=== PATIENT | male | born 1965 | race Two or more races ===

== ENCOUNTER → 2024-07-07 | Outpatient (CLI) | payer BC ==
[2024-07-07 13:05] LABS: Urine Bacteria None Seen /hpf (None Seen)
[2024-07-07 13:13] LABS: Urine Blood Negative /uL (Negative); Urine Clarity Clear (Clear); Urine Color Yellow (Yellow); Urine Mucus FEW (None Seen); Urine Protein, UAD Negative (Negative); Urine Specific Gravity 1.028 (1.001-1.035); Urine Urobilinogen Normal (Negative); Urine WBC 2 /hpf (0 - 3)
[2024-07-07 13:14] LABS: Basophils # (auto) 0 10 ^3/uL (0-0.2); Basophils % (auto) 0.7 % (0.0-2.0); Eosinophils # (auto) 0.3 10 ^3/uL (0-0.8); Eosinophils % (auto) 4.8 % (0.0-7.0); Hematocrit 45.7 % (41.0-53.0); Hemoglobin 15.8 g/dL (13.5-17.5); Lymphocytes % (auto) 29.7 % (10.0-50.0); Mean Corpuscular Hemoglobin 31.5 pg (28.0-32.0); Mean Corpuscular Hgb Conc. 34.5 g/dL (32.0-36.0); Mean Corpuscular Volume 91.1 fL (80.0-100.0); Monocytes # (auto) 0.6 10 ^3/uL (0-1.3); Monocytes % (auto) 9.2 % (0.0-12.0); Neutrophils # (auto) 3.8 10 ^3/uL (1.6-8.6); Neutrophils % (auto) 55.6 % (37.0-80.0); Nucleated Red Blood Cells % 0.2 %; Platelet Count (auto) 215 10^3/uL (140-450); Red Blood Cells 5.01 10^6/uL (4.5-5.90); Red Cell Distribution Width 12.8 % (11.8-14.3); White Blood Cell 6.8 10^3/uL (4.4-10.8)
[2024-07-07 13:26] LABS: INR 1.03 (0.9-1.15); Prothrombin Time 10.9 sec (9.3-11.8)
[2024-07-07 13:32] LABS: Albumin 4.7 g/dL (3.2-4.8); Alkaline Phosphatase 66 U/L (46-116); Anion Gap 7 (5-15); Aspartate Aminotransferase 20 U/L (13-40); BUN/Creatinine Ratio 11.8 (10.0-20.0); Bilirubin, Total 0.8 mg/dL (0.2-1.0); Blood Urea Nitrogen 14 mg/dL (9-23); Calcium 10.3 mg/dL (8.7-10.4); Carbon Dioxide 29 mmol/L (20-31); Chloride 104 mmol/L (98-107); Cholesterol 183 mg/dL (< 200); Glucose 90 mg/dL (74-106); HDL Cholesterol 42 mg/dL (40-59); Potassium 4.4 mmol/L (3.5-5.1); Sodium 140 mmol/L (136-145); Total Protein 7.4 g/dL (5.7-8.2)
[2024-07-07 13:33] LABS: Alanine Aminotransferase 47 U/L (7-40); LDL Cholesterol 115 mg/dL (< 100); Triglycerides 183 mg/dL (< 150)
[2024-07-07 13:54] LABS: Folate (Folic Acid) 39.64 ng/mL (>5.38)
== END | disposition home or self-care (01) ==
LOC: LAB 12:46
PROVIDERS: ATTEND Internal Medicine
DX: E78.9 Disorder of lipoprotein metabolism, unspecified (principal); R68.89 Other general symptoms and signs; R73.09 Other abnormal glucose; E61.2 Magnesium deficiency; R94.6 Abnormal results of thyroid function studies; E79.0 Hyperuricemia without signs of inflammatory arthritis and tophaceous disease; E55.9 Vitamin D deficiency, unspecified; R82.90 Unspecified abnormal findings in urine; R82.79 Other abnormal findings on microbiological examination of urine; D51.9 Vitamin B12 deficiency anemia, unspecified
CPT/HCPCS: 36415; 80053; 80061; 81001; 82306; 82607; 82746; 83036; 84443; 84484; 85025; 85610; 85730; 87086

== ENCOUNTER 2024-10-03 07:18 | Inpatient (IN) | payer BC ==
[2024-09-30 12:04] LABS: Basophils # (auto) 0 10 ^3/uL (0-0.2); Basophils % (auto) 0.6 % (0.0-2.0); Eosinophils # (auto) 0.3 10 ^3/uL (0-0.8); Eosinophils % (auto) 5.3 % (0.0-7.0); Hematocrit 46.7 % (41.0-53.0); Hemoglobin 15.9 g/dL (13.5-17.5); Lymphocytes # (auto) 1.8 10 ^3/uL (0.4-5.4); Mean Corpuscular Hemoglobin 30.7 pg (28.0-32.0); Mean Corpuscular Volume 90.3 fL (80.0-100.0); Monocytes # (auto) 0.5 10 ^3/uL (0-1.3); Monocytes % (auto) 9.4 % (0.0-12.0); Neutrophils # (auto) 2.9 10 ^3/uL (1.6-8.6); Neutrophils % (auto) 51.7 % (37.0-80.0); Nucleated Red Blood Cells % 0.2 %; Platelet Count (auto) 213 10^3/uL (140-450); Red Blood Cells 5.17 10^6/uL (4.5-5.90); Red Cell Distribution Width 12.9 % (11.8-14.3); White Blood Cell 5.5 10^3/uL (4.4-10.8)
[2024-09-30 12:07] LABS: Urine Bacteria FEW /hpf (None Seen); Urine Blood Negative /uL (Negative); Urine Clarity Clear (Clear); Urine Color Yellow (Yellow); Urine Mucus FEW (None Seen); Urine Protein, UAD Negative (Negative); Urine Specific Gravity 1.013 (1.001-1.035); Urine Sperm PRESENT /hpf (None Seen); Urine Squamous Epithelial Cell None Seen /hpf (<5); Urine Urobilinogen Normal (Negative); Urine WBC 2 /HPF (0-3); Urine pH 5.5 (5.0-9.0)
[2024-09-30 12:17] LABS: INR 1.01 (0.9-1.15); Partial Thromboplastin Time 28.6 SEC (24.5-34.5); Prothrombin Time 10.7 sec (9.3-11.8)
[2024-09-30 13:15] LABS: Alkaline Phosphatase 66 U/L (46-116); Anion Gap 7 (5-15); Aspartate Aminotransferase 27 U/L (13-40); BUN/Creatinine Ratio 11.7 (10.0-20.0); Blood Urea Nitrogen 15 mg/dL (9-23); Calcium 10.3 mg/dL (8.7-10.4); Carbon Dioxide 28 mmol/L (20-31); Chloride 104 mmol/L (98-107); Glucose 86 mg/dL (74-106); Sodium 139 mmol/L (136-145); Total Protein 7.6 g/dL (5.7-8.2)
[2024-09-30 13:16] LABS: Bilirubin, Total 0.9 mg/dL (0.2-1.0)
[2024-09-30 13:17] LABS: Alanine Aminotransferase 42 U/L (7-40); Albumin 4.9 g/dL (3.2-4.8)
[~2024-10-03] VITALS: Ht 182.9 cm; Wt 105.4 kg
[2024-10-03] VITALS (14 sets, daily range): BP systolic 100–122; BP diastolic 59–76; PULSE 73–102; RESP 11–18; TEMP 97.2–98.2; O2SAT 91–100
[~2024-10-03 07:18] MED LIST: DICL75TA3 PO; FAMO-12 PO; LISI10TA34 PO; SIMV20TA20 PO; TADA5TAB11 PO
[2024-10-03] MEDS: ACETAMINOPHEN IV 100 ML IV ONE (08:21)
[2024-10-03] MEDS ORDERED: fentaNYL CITRATE 100 MCG/2 ML VL ONE (08:23)
[2024-10-03] MEDS ORDERED: SODIUM CHLORIDE LOCK 10 ML ONE (08:24)
[2024-10-03] MEDS ORDERED: LIDOCAINE 1% INJ PF 5ML AMP ONE (08:24)
[2024-10-03] MEDS ORDERED: BUPIVACAINE/DEXTROSE MPF 0.75% 2 ML AMP IT ONE (08:24)
[2024-10-03] MEDS ORDERED: KETAMINE 50mg/ML 10ml Vial 10 ML ONE (08:24)
[2024-10-03] MEDS ORDERED: MIDAZOLAM HCL 2MG/2ML 2ml VIAL (1mg/ml) ONE ×2 (08:24→08:28)
[2024-10-03] MEDS ORDERED: PROPOFOL 10 MG/ML 20 ML IV ONE (08:24)
[2024-10-03] MEDS ORDERED: EPINEPHrine HCL 1 MG/1 ML AMP ONE (08:24)
[2024-10-03] MEDS ORDERED: ONDANSETRON HCL 4 MG/2 ML VIAL ONE (08:24)
[2024-10-03] MEDS: CELECOXIB 100 MG CAP ONE (08:45)
[2024-10-03] MEDS: PREGABALIN CAPSULE 75 MG CAP ONE (08:46)
[2024-10-03] MEDS: ACETAMINOPHEN IV 1000 MG/100ML (10MG/ML) IV ONE (09:30)
[2024-10-03] MEDS: PREGABALIN CAPSULE 75 MG CAP PO ONE (09:30)
[2024-10-03] MEDS: CELECOXIB 100 MG CAP PO ONE (09:30)
[2024-10-03] MEDS: KETOROLAC TROMETH 30 MG/ML 1ML VIAL ONE (09:57)
[2024-10-03] MEDS: TETRACAINE 1% INJ 2 ML VIAL IJ ONE (09:58)
[2024-10-03] MEDS: ceFAZolin 2 GM/D5W100ml 100 ML IV ONE (10:24)
[2024-10-03] MEDS: CEFEPIME 1GM/ 50ML 50 ML IV ONE (10:43)
[2024-10-03] MEDS: LACTATED RINGER'S 1,000 ML IV SCH (10:45)
[2024-10-03] MEDS ORDERED: MORPHINE SULFATE INJ 2 MG/ml SYRG IV PRN ×2 (10:45→12:15)
[2024-10-03] MEDS ORDERED: NITROGLYCERIN 0.4 MG SL TAB SL PRN (10:45)
[2024-10-03] MEDS ORDERED: HYDROmorphone HCL 2 MG/ML VL/or syr IV PRN ×6 (10:45→14:30)
[2024-10-03] MEDS: TRANEXAMIC ACID 20 ML ONE (10:50)
[2024-10-03] MEDS: BUPIVACAINE HCL 0.25% P/F 10 ML VIAL ONE (10:52)
[2024-10-03] MEDS: MORPHINE SULF PF 5 MG/10 ML VIAL ONE (10:52)
[2024-10-03] MEDS: KETOROLAC TROMETH 30 MG/ML 1ML VIAL IV ONE (10:52)
[2024-10-03] MEDS: VANCOMYCIN HCL 1000 MG VL ONE ×2 (10:52)
[2024-10-03] MEDS: ONDANSETRON HCL 4 MG/2 ML VIAL IV PRN (12:15)
[2024-10-03] MEDS ORDERED: MORPHINE SULFATE 4 MG/ML SYR/VIAL IV PRN (12:15)
[2024-10-03] MEDS ORDERED: NALOXONE HCL 0.4 MG/ML VIAL IV PRN (12:15)
[2024-10-03] MEDS ORDERED: diphenhdrAMINE HCL 50 MG/1 ML VL IV PRN (12:15)
[2024-10-03] MEDS: METOCLOPRAMIDE HCL 5MG/ml INJ 2ml VIAL IV ONE (12:15)
--- NOTE | 2024-10-03 12:21 | DVH ---
CLINICAL INDICATION: sp Right DAVID TECHNIQUE: 1 radiographic views of the pelvis were obtained. Comparison: None FINDINGS/IMPRESSION: Status post left hip arthroplasty.
[2024-10-03] MEDS: FAMOTIDINE (10MG/ML) 2ML VL IV ONE ×2 (12:24→12:30)
[2024-10-03] MEDS: METOCLOPRAMIDE HCL 5MG/ml INJ 2ml VIAL ONE (13:40)
--- NOTE | 2024-10-03 14:23 | DVHHP2 ---
Review of Systems Allergies: Coded Allergies: NO KNOWN ALLERGIES (Unverified , 09/30/24) Medications Current Medications Medications Dose Ordered Sig/Danial Route Start Time Stop Time Status Last Admin Dose Admin Famotidine 20 mg DAILY PO 10/04/24 10:00 Lisinopril 10 mg DAILY PO 10/04/24 10:00 Atorvastatin Calcium 10 mg HS PO 10/03/24 22:00 Lactated Ringer's 1,000 ml @ 100 mls/hr Q10H IV 10/03/24 10:45 Cefazolin Sodium 50 ml @ 50 mls/hr Q6H IV 10/03/24 10:45 10/03/24 23:44 Oxycodone/ Acetaminophen 1 tab Q4HP PRN PO 10/03/24 10:45 Oxycodone HCl 10 mg Q12HR PO 10/03/24 22:00 Ondansetron HCl 4 mg Q6HP PRN IV 10/03/24 10:45 10/03/24 12:15 4 MG Docusate Sodium 100 mg Q12HR PO 10/03/24 22:00 Enoxaparin Sodium 40 mg DAILY SC 10/04/24 10:00 Nitroglycerin 0.4 mg Q5MINP PRN SL 10/03/24 10:45 Morphine Sulfate 2 mg Q30M PRN IV 10/03/24 10:45 Cefepime HCl 50 ml @ 12.5 mls/hr DAILY IV 10/04/24 10:00 Morphine Sulfate 2 mg Q4H PRN IV 10/03/24 12:15 10/03/24 16:16 Diphenhydramine HCl 25 mg Q4HP PRN IV 10/03/24 12:15 Hydromorphone HCl 1 mg Q2HP PRN IV 10/03/24 13:00 Exam Vital Signs Vital Signs Date Time Temp Pulse Resp B/P (MAP) Pulse Ox O2 Delivery O2 Flow Rate FiO2 10/03/24 08:20 97.8 97 20 127/82 (97) 97 97.8 Labs/Xrays Labs Test 09/30/24 10:45 Range/Units White Blood Count 5.5 4.4-10.8 10^3/uL Red Blood Count 5.17 4.5-5.90 10^6/uL Hemoglobin 15.9 13.5-17.5 g/dL Hematocrit 46.7 41.0-53.0 % Mean Corpuscular Volume 90.3 80.0-100.0 fL Mean Corpuscular Hemoglobin 30.7 28.0-32.0 pg Mean Corpuscular Hemoglobin Concent 34.0 32.0-36.0 g/dL Red Cell Distribution Width 12.9 11.8-14.3 % Platelet Count 213 140-450 10^3/uL Mean Platelet Volume 8.3 6.9-10.8 fL Neutrophils (%) (Auto) 51.7 37.0-80.0 % Lymphocytes (%) (Auto) 33.0 10.0-50.0 % Monocytes (%) (Auto) 9.4 0.0-12.0 % Eosinophils (%) (Auto) 5.3 0.0-7.0 % Basophils (%) (Auto) 0.6 0.0-2.0 % Neutrophils # (Auto) 2.9 1.6-8.6 10 ^3/uL Lymphocytes # (Auto) 1.8 0.4-5.4 10 ^3/uL Monocytes # (Auto) 0.5 0-1.3 10 ^3/uL Eosinophils # (Auto) 0.3 0-0.8 10 ^3/uL Basophils # (Auto) 0 0-0.2 10 ^3/uL Nucleated Red Blood Cells 0.2 % Prothrombin Time 10.7 9.3-11.8 sec Prothrombin Time INR 1.01 0.9-1.15 Activated Partial Thromboplast Time 28.6 24.5-34.5 SEC Urine Color Yellow Yellow Urine Clarity Clear Clear Urine pH 5.5 5.0-9.0 Urine Specific [place] 1.013 1.001-1.035 Urine Protein Negative Negative Urine Ketones Negative Negative Urine Blood Negative Negative /uL Urine Nitrite Negative Negative Urine Bilirubin Negative Negative Urine Urobilinogen Normal Negative mg/dL Urine Leukocyte Esterase Negative Negative /uL Urine RBC 1 0 - 3 /hpf Urine Microscopic WBC 2 0-3 /HPF Urine Squamous Epithelial Cells None seen <5 /hpf Urine Bacteria Few H None Seen /hpf Urine Mucus Few None Seen Urine Sperm Present None Seen /hpf Urine Glucose Normal Normal mg/dL Sodium Level 139 136-145 mmol/L Potassium Level 5.0 3.5-5.1 mmol/L Chloride Level 104 98-107 mmol/L Carbon Dioxide Level 28 20-31 mmol/L Anion Gap 7 5-15 Blood Urea Nitrogen 15 9-23 mg/dL Creatinine 1.28 0.700-1.30 mg/dL Glomerular Filtration Rate Calc 64 >90 mL/min BUN/Creatinine Ratio 11.7 10.0-20.0 Serum Glucose 86 74-106 mg/dL Calcium Level 10.3 8.7-10.4 mg/dL Total Bilirubin 0.9 0.2-1.0 mg/dL Aspartate Amino Transferase (AST) 27 13-40 U/L Alanine Aminotransferase (ALT) 42 H 7-40 U/L Alkaline Phosphatase 66 46-116 U/L Total Protein 7.6 5.7-8.2 g/dL Albumin 4.9 H 3.2-4.8 g/dL Assessment/Plan Assessment/Plan see dictated note Plan discussed with: Patient My Orders Orders - NOAH SANCHEZ MD Procedure Category Date Status Time Admit ADMIT 10/03/24 Transmitted 13:23 Date of Service: Oct 03, 2024 Billing Provider: NOAH SANCHEZ MD Common Visit Codes: [id number] INP/OBS CARE (HIGH) NOAH SANCHEZ MD Oct 03, 2024 14:23
--- NOTE | 2024-10-03 14:40 | DVHHP ---
ADMIT DATE: 10/03/2024 HISTORY OF PRESENT ILLNESS: The patient is a 58-year-old gentleman who was admitted after he underwent surgery on the right hip for DJD of the hip. The patient at this time denies any significant pain. No chest pain or shortness of breath. The patient is having some nausea and vomiting. No history of fever. REVIEW OF SYSTEMS: Review of rest of systems are otherwise currently negative. PAST MEDICAL HISTORY: Significant for hypertension, hyperlipidemia, and BPH. MEDICATIONS: He takes lisinopril, simvastatin, and tadalafil. ALLERGIES: No known drug allergies. SOCIAL HISTORY: Denies smoking or alcohol. Lives at home with his . FAMILY HISTORY: Negative. PHYSICAL EXAMINATION: GENERAL: The patient is awake and alert. VITAL SIGNS: Temperature of 97.8, pulse 97 per minute, blood pressure 127/82. SHEENT: Unremarkable. There is no JVD. No pedal edema. LUNGS: Equal bilaterally. No added sounds. CARDIOVASCULAR: S1, S2 is regular. No murmurs. ABDOMEN: Soft. There is no organomegaly. NEUROLOGIC: Nonfocal. MUSCULOSKELETAL: There is a dressing at the site of right hip surgery. ASSESSMENT AND PLAN: * Benign prostatic hypertrophy for which the patient will continue on tadalafil. * Hypertension for which his blood pressure will be monitored. * Hyperlipidemia. * Obesity. * Status post right hip surgery for degenerative joint disease of the hip. The patient will be placed on pain medication and receive physical therapy. MD JIN Smith/CHAVA TID: [id number] RECEIPT: [id number]
--- NOTE | 2024-10-03 15:24 | DVH ---
CLINICAL INDICATION: SURGERY TECHNIQUE: 1 radiographic views of the pelvis were obtained. Comparison: XY PELVIS AP on DOS: 10/03/24 FINDINGS/IMPRESSION: There is no evidence of acute fracture or dislocation. Bipolar right hip prosthesis. The visualized joint space is well maintained. The alignment is anatomical. There is no radiopaque foreign body.
[2024-10-03] MEDS: ceFAZolin 1GM/50ML 50 ML IV SCH (16:45)
[2024-10-03] MEDS: DOCUSATE SOD 100 MG CAP PO SCH (21:40)
[2024-10-03] MEDS: oxyCODONE ER 10 MG TAB PO SCH (21:41)
[2024-10-03] MEDS: ATORVASTATIN 20 MG TAB PO SCH (21:41)
[2024-10-04] VITALS (13 sets, daily range): BP systolic 101–126; BP diastolic 62–72; PULSE 93–107; RESP 16–18; TEMP 98.2–100.3; O2SAT 96–100
[2024-10-04 05:44] LABS: Basophils # (auto) 0 10 ^3/uL (0-0.2); Basophils % (auto) 0.2 % (0.0-2.0); Eosinophils # (auto) 0.1 10 ^3/uL (0-0.8); Eosinophils % (auto) 0.8 % (0.0-7.0); Hematocrit 38.9 % (41.0-53.0); Hemoglobin 13.1 g/dL (13.5-17.5); Lymphocytes # (auto) 1.7 10 ^3/uL (0.4-5.4); Lymphocytes % (auto) 20.4 % (10.0-50.0); Mean Corpuscular Hemoglobin 30.5 pg (28.0-32.0); Mean Corpuscular Hgb Conc. 33.7 g/dL (32.0-36.0); Mean Corpuscular Volume 90.6 fL (80.0-100.0); Monocytes # (auto) 1.1 10 ^3/uL (0-1.3); Monocytes % (auto) 13.5 % (0.0-12.0); Neutrophils # (auto) 5.4 10 ^3/uL (1.6-8.6); Neutrophils % (auto) 65.1 % (37.0-80.0); Platelet Count (auto) 180 10^3/uL (140-450); Red Cell Distribution Width 12.7 % (11.8-14.3); White Blood Cell 8.2 10^3/uL (4.4-10.8)
[2024-10-04 06:08] LABS: Alanine Aminotransferase 35 U/L (7-40); Anion Gap 9 (5-15); BUN/Creatinine Ratio 14.7 (10.0-20.0); Blood Urea Nitrogen 16 mg/dL (9-23); Carbon Dioxide 27 mmol/L (20-31); Chloride 101 mmol/L (98-107); Potassium 4.1 mmol/L (3.5-5.1); Sodium 137 mmol/L (136-145); Total Protein 6.1 g/dL (5.7-8.2)
[2024-10-04 06:09] LABS: Aspartate Aminotransferase 29 U/L (13-40); Bilirubin, Total 0.8 mg/dL (0.2-1.0)
[2024-10-04 06:39] LABS: Alkaline Phosphatase 42 U/L (46-116); Glucose 112 mg/dL (74-106)
--- NOTE | 2024-10-04 08:01 | DVHPN2 ---
Progress Note Date Seen: Oct 04, 2024 Medical Necessity Reason Pt with a Central, PICC or Fol: No Subjective Patient reports: No new complaints Objective vital signs Vital Sign Date Time Temp Pulse Resp B/P (MAP) Pulse Ox O2 Delivery O2 Flow Rate FiO2 10/04/24 05:00 98.2 97 18 105/70 (82) 97 98.2 10/03/24 20:00 Nasal Cannula* 2 28 Total Intake and Output 10/03/24 10/03/24 10/04/24 15:00 23:00 07:00 Intake Total 270 ml 50 ml 2000 ml Balance 270 ml 50 ml 2000 ml medications Current Medications Medications Dose Ordered Sig/Danial Route Start Time Stop Time Status Last Admin Dose Admin Atorvastatin Calcium 10 mg HS PO 10/03/24 22:00 10/03/24 21:41 10 MG Lactated Ringer's 1,000 ml @ 100 mls/hr Q10H IV 10/03/24 10:45 10/03/24 21:43 100 MLS/HR Oxycodone/ Acetaminophen 1 tab Q4HP PRN PO 10/03/24 10:45 Oxycodone HCl 10 mg Q12HR PO 10/03/24 22:00 Ondansetron HCl 4 mg Q6HP PRN IV 10/03/24 10:45 10/03/24 12:15 4 MG Docusate Sodium 100 mg Q12HR PO 10/03/24 22:00 10/03/24 21:40 100 MG Enoxaparin Sodium 40 mg DAILY SC 10/04/24 10:00 Nitroglycerin 0.4 mg Q5MINP PRN SL 10/03/24 10:45 Morphine Sulfate 2 mg Q30M PRN IV 10/03/24 10:45 Cefepime HCl 50 ml @ 12.5 mls/hr DAILY IV 10/04/24 10:00 Diphenhydramine HCl 25 mg Q4HP PRN IV 10/03/24 12:15 Patient Own Medication 5 mg DAILY PO 10/04/24 10:00 Hydromorphone HCl 1 mg Q3HP PRN IV 10/03/24 14:30 Famotidine 20 mg DAILY IV 10/04/24 10:00 Examination: GENERAL:Normal, MSK:Abnormal (aquacel inact with no new drainage) laboratory and microbiology Laboratory Tests 10/04/24 05:02 Test 10/04/24 05:02 Range/Units Serum Glucose 112 H 74-106 mg/dL Problem List/Assessment/Plan Problem List/Assessment/Plan 58 year old male who is s/p Right DAVID POD 1 1. Pain control 2. WBAT with assistive devices as needed with posterior hip precautions 3. Physical therapy 4. prescriptions for tramadol and aspirin for DVT ppx sent to [facility] on [place] [address] 5. Follow up at [facility] ortho clinic in 2 weeks 6. clear for discharge home today from orthopedic standpoint with the following discharge recommendations: POSTOPERATIVE Posterior Total Hip INSTRUCTIONS Activity: 1. You can bear as much weight as you tolerate on your hip unless specifically instructed otherwise. You may use the walking aid which you were discharged with and switch to a cane whenever you feel comfortable doing so. You should use an assistive device until you can walk comfortably without it. Keep in mind that every patient moves at their own speed of recovery so take your time. 2. A physical therapist will visit you at home. 3. Although guarantees against a dislocation do not exist, the hip was noted to be sufficiently stable in surgery. Below are motions that you should dischargenot do for 4-6 weeks, depending on the surgical approach used. If there are questions, please call the office. a. Bend forward past 90 degrees b. Sit on a regular low chair, couch, car seat etc... c. Cross your legs d. Use a regular low toilet seat. e. Sleep on your stomach or on either side. 3. High impact activity such as jumping, aerobics, tennis, and skiing are not permitted during the first 3 months after surgery. These activities can contribute to accelerated wear and should be done with caution after this time. Discuss this with your surgeon if you have questions. 4. Although a bath or whirlpool is NOT permitted during the first 2-3 weeks, you may shower as soon as you get home from the hospital provided you are able to keep your bandage clean and dry and there is no wound drainage. If you are unable to place a secured covering over your bandage bed bath/sponge bath may likely be the more appropriate option. 5. Swimming is not permitted until the wound is healed, which typically occurs approximately 3-4 weeks after surgery. Wound Management: If the wound is draining please change the gauze pad on the wound until it stops. If drainage persists past 10 days please notify our office. If there is a sticky gel dressing over your wound, you may leave this in place for as long as it is clean and dry. If it becomes loose or causes skin irritation, it is OK to remove it and place clean gauze over your wound. 1. You might notice some bruising around the surgical site, this is normal. 2. Check your temperature on a daily basis. Please note that a low-grade temp below 101 is not uncommon after surgery especially during the first 3 days. Notify the office if your temperature spikes above 101.5 after the 3rd post- operative date. 3. Many patients experience significant swelling in the thigh, this may extend below the knee and sometimes to the ankle. Swelling increases during the first week and subsides during the following week. 4. Provided you have been on a blood thinner since surgery and have been up and about at least three times per day, the risk of a blood clot is low and this swelling is an expected part of recovery. It will largely or completely resolve by your first post-operative visit. 5. [place], if present, will be removed at 2 weeks during initial post-op visit. Medications: 1. You will be discharged with pain medication, Aspirin as a blood thinner and sometimes an anti-inflammatory medication such as Celebrex or Mobic might be prescribed. Please follow the instructions regarding these medicines as provided by your nurse at the hospital. 2. Narcotic pain medication has side effects, including constipation. Please ensure you continue to take stool softeners (Colace, Senna) while taking your pain medication to help protect against constipation. Getting up and moving around at least a few times per day helps with this also. 3. Lovenox 40 Sq x 12 days followed by one regular strength 325 mg coated aspirin daily for 4 weeks after surgery. Then, take one baby aspirin, 81 mg daily for 6 weeks more. A major, yet preventable, complication of Orthopaedic Surgery is a blood clot (DVT). It is important not to miss any doses of this important medication. 4. You should restart all of your prescription medications once discharged unless specifically instructed otherwise. 5. Herbal supplements may be restarted 2 weeks after surgery. Miscellaneous issues: 1. Driving is not permitted within the first 2 weeks. 2. Your first postoperative visit will take place 2weeks after discharge. Please call the office to arrange this appointment. 3. Antibiotic preventative treatment is required before dental or other invasive procedures. Please ask your surgeon about this at your first postoperative visit. Your hip replacement contains metal which may activate metal detectors. You may wish to carry a letter from your surgeon to communicate this to security personnel. If you experience chest pain, shortness of breath or severe painful calf swelling, go to the nearest emergency room to be evaluated. Please call our office once your situation is stabilized. Plan discussed with: Patient Date of Service: Oct 04, 2024 Billing Provider: STEVEN SANDOVAL MD Common Visit Codes: NOT BILLABLE NYLA RODRIGUEZ NP Oct 04, 2024 08:01
[2024-10-04] MEDS: CEFEPIME 1GM/ 50ML 50 ML IV SCH (09:48)
[2024-10-04] MEDS: OXYCODONE W/ ACETAMINOPHEN 5/325MG TABLET PO PRN (09:48)
[2024-10-04] MEDS: FAMOTIDINE (10MG/ML) 2ML VL IV SCH (09:48)
[2024-10-04] MEDS: TADALAFIL PO SCH (09:49)
[2024-10-04] MEDS: ENOXAPARIN SOD 40 MG/0.4 ML SYRINGE SC SCH (09:49)
[2024-10-04] MEDS ORDERED: FAMOTIDINE 20 MG TAB PO SCH (10:00)
[2024-10-04] MEDS ORDERED: LISINOPRIL 5 MG TAB PO SCH (10:00)
--- NOTE | 2024-10-04 10:59 | DVHDS2 ---
Discharge Summary Date of Admission Oct 03, 2024 at 10:33 Date of Discharge: Oct 04, 2024 Labs/Diagnostic Data: Laboratory Results Test 10/04/24 05:02 09/30/24 10:45 White Blood Count 8.2 10^3/uL (4.4-10.8) Red Blood Count 4.30 10^6/uL (4.5-5.90) Hemoglobin 13.1 g/dL (13.5-17.5) Hematocrit 38.9 % (41.0-53.0) Mean Corpuscular Volume 90.6 fL (80.0-100.0) Mean Corpuscular Hemoglobin 30.5 pg (28.0-32.0) Mean Corpuscular Hemoglobin Concent 33.7 g/dL (32.0-36.0) Red Cell Distribution Width 12.7 % (11.8-14.3) Platelet Count 180 10^3/uL (140-450) Mean Platelet Volume 8.3 fL (6.9-10.8) Neutrophils (%) (Auto) 65.1 % (37.0-80.0) Lymphocytes (%) (Auto) 20.4 % (10.0-50.0) Monocytes (%) (Auto) 13.5 % (0.0-12.0) Eosinophils (%) (Auto) 0.8 % (0.0-7.0) Basophils (%) (Auto) 0.2 % (0.0-2.0) Neutrophils # (Auto) 5.4 10 ^3/uL (1.6-8.6) Lymphocytes # (Auto) 1.7 10 ^3/uL (0.4-5.4) Monocytes # (Auto) 1.1 10 ^3/uL (0-1.3) Eosinophils # (Auto) 0.1 10 ^3/uL (0-0.8) Basophils # (Auto) 0 10 ^3/uL (0-0.2) Nucleated Red Blood Cells 0.0 % Sodium Level 137 mmol/L (136-145) Potassium Level 4.1 mmol/L (3.5-5.1) Chloride Level 101 mmol/L (98-107) Carbon Dioxide Level 27 mmol/L (20-31) Anion Gap 9 (5-15) Blood Urea Nitrogen 16 mg/dL (9-23) Creatinine 1.09 mg/dL (0.700-1.30) Glomerular Filtration Rate Calc 78 mL/min (>90) BUN/Creatinine Ratio 14.7 (10.0-20.0) Serum Glucose 112 mg/dL (74-106) Calcium Level 9.0 mg/dL (8.7-10.4) Total Bilirubin 0.8 mg/dL (0.2-1.0) Aspartate Amino Transferase (AST) 29 U/L (13-40) Alanine Aminotransferase (ALT) 35 U/L (7-40) Alkaline Phosphatase 42 U/L (46-116) Total Protein 6.1 g/dL (5.7-8.2) Albumin 4.0 g/dL (3.2-4.8) Prothrombin Time 10.7 sec (9.3-11.8) Prothrombin Time INR 1.01 (0.9-1.15) Activated Partial Thromboplast Time 28.6 SEC (24.5-34.5) Urine Color Yellow (Yellow) Urine Clarity Clear (Clear) Urine pH 5.5 (5.0-9.0) Urine Specific [place] 1.013 (1.001-1.035) Urine Protein Negative (Negative) Urine Ketones Negative (Negative) Urine Blood Negative /uL (Negative) Urine Nitrite Negative (Negative) Urine Bilirubin Negative (Negative) Urine Urobilinogen Normal mg/dL (Negative) Urine Leukocyte Esterase Negative /uL (Negative) Urine RBC 1 /hpf (0 - 3) Urine Microscopic WBC 2 /HPF (0-3) Urine Squamous Epithelial Cells None seen /hpf (<5) Urine Bacteria Few /hpf (None Seen) Urine Mucus Few (None Seen) Urine Sperm Present /hpf (None Seen) Urine Glucose Normal mg/dL (Normal) Other Laboratory Tests 10/04/24 05:02 Brief Hx & Hospital Course: see dictated note Condition at Discharge: Good Final Diagnosis/Problems List right hip surgery Discharge Disposition: Home with Health Services Discharge Instruct/Medications Diet: Cardiac 2g Na,low cholest Activity: No Restrictions, As Tolerated Follow Up/Referral: fu with ortho Medications: resume home meds rest per ortho Discharge Statement: "Patient was advised to return to the ER or call 911 if any headaches, dizziness, shortness of breath, chest pain, abdominal pain, bleeding, fevers, or worsening of medical condition. Patient was counseled about treatment plan, medications, possible side effects, patientverbalized understanding. All questions were answered to the best of my ability. This discharge took greater then 30 minutes in planning, reviewing documentation, counseling the patient, and discussing with other team members." ASSESSMENT ASSESSMENT Assessment right hip surgery Date of Service: Oct 04, 2024 Billing Provider: NOAH SANCHEZ MD Common Visit Codes: [id number] DISCH DAY >30min NOAH SANCHEZ MD Oct 04, 2024 10:59
[2024-10-04] MEDS: METOCLOPRAMIDE HCL 5MG/ml INJ 2ml VIAL IV ONE (11:40)
--- NOTE | 2024-10-04 11:44 | DVHDS ---
DATE OF DISCHARGE: 10/04/2024 HISTORY OF PRESENT ILLNESS: The patient is a 58-year-old gentleman who was admitted after he had surgery on the right hip for DJD of the hip. He has history of hypertension, hyperlipidemia and BPH. HOSPITAL COURSE: The patient did well postoperatively. Hemoglobin has been stable. He has been ambulating with Physical Therapy and has been cleared for discharge by Orthopedics. He will now be discharged home to have home physical therapy and will resume the rest of his home medications. He will follow up with Orthopedic and his primary care doctor. FINAL DIAGNOSES: Therefore, * Hypertension. * Benign prostatic hypertrophy. * Hyperlipidemia. * Obesity. * Status post right hip surgery for degenerative joint disease of the hip. The patient will be placed on pain medications. The patient will have home health services. Time spent in discharge planning including discussion with the patient and nursing was 38 minutes. MD JIN Smith/DEVANTE/JI TID: [id number] RECEIPT: [id number]
--- NOTE | 2024-10-04 15:39 | DVHOP2 ---
Operative Report - 2 Report Details Date: 10/03/24 Preop Diagnosis: Right hip end stage osteoarthritis Postop Diagnosis: Right hip end stage osteoarthritis Surgeon: Elmer Sandoval MD Artificial Log Machine Operator: Elisabet Mayo NP Anesthesiologist: Toi LEGER Anesthesia: Regional Implant: [employer] Size 56 R3 cup 44/28+4 mm dual mobility size 3 std offset polaris stem Consent: The patient was informed of the risks and benefits of the procedure. These include but are not limited to complications of anesthesia, postoperative infection, incomplete relief of symptoms, recurrence of symptoms, damage to blood vessels, nerves and tendons, deep venous thrombosis, pulmonary embolism and possible need for repeat surgery in the future. Estimated Blood Loss: 300 cc Name of Procedure Performed Right total hip arthroplasty using computer navigation Procedure Details Procedure Details: FINDINGS: Extensive degenerative disease with grade IV changes INDICATION: This patient has failed non-operative treatments for hip arthritis and is now indicated for a total hip replacement. Preoperatively in the waiting area as well as in the office, I had a long discussion with the patient regarding the plan, the expected outcome, the risks, benefits, and alternatives of surgery. The risks include, but are not limited to, infection (which may require future surgery and removal of implants) , bleeding (which may require a transfusion), damage to nerves, arteries, veins, tendons, muscles and other adjacent structures. Also discussed the possibilities of dislocation, leg-length discrepancy, intraoperative fractures, implant loosening, heterotopic bone formation, and revision for variety of reasons, and medical complications etc. This was discussed at length and consent has been obtained. DESCRIPTION OF PROCEDURE: In the preoperative holding area, the consent was reviewed and the appropriate extremity was verified by the patient and marked with my initials. The patient was then transferred to the operating theatre. Appropriate anesthetia was induced. All bony prominences were well padded. A time out was performed verifying the side and site of surgery according to standard protocol. Preoperative antibiotics were given. Tranexamic acid was given. The patient was then placed in the lateral decubitus position and fixed with rigid pelvic fixation. All bony prominences were well padded and an axillary roll was placed. The affected hip area was then prepped and draped in the usual sterile fashion. Using an 11-blade, three stab incisions were made over the iliac crest. Two threaded guide pins were inserted into the crest confirming to be in bone. The pelvic array was attached to the pins and tightened. We made a standard posterolateral incision sharply through the skin and carried our dissection down through subcutaneous tissue to the underlying fascia achieving hemostasis where necessary. We incised the fascia in line with our incision. We identified and protected the sciatic nerve. We took down the external rotators and hip capsule from their insertion into the greater trochanter, tagged them and retracted them posteriorly for further protection of the sciatic nerve. A check point was placed into the greater trochanter and the hip center and l eg length length were registered. We then dislocated the femoral head and performed an osteotomy of the femoral neck in accordance with our pre-operative plan. The labrum was excised with a long-handle knife, and we exposed the acetabular rim and cotyloid fossa. We then reamed up to our final size in accordance with the preoperative plan. We copiously irrigated and then impacted the final cup into position. We confirmed the position with the robotic navigation guidance. Attention was then turned to the femur. We used a box osteotome followed by a canal finder to gain entry to the canal. Intramedullary contents were suctioned and care was taken to ensure they did not touch the tissues. We sequentially reamed until good cortical contact, then broached up to out final size. We trialed with the appropriate femoral neck and head and reduced the hip. The hip was taken through a full range of motion. The hip soft tissues were examined in extension and external rotation, the anterior capsule and IT band were palpated, and combined anteversion was determined to be 40 degrees. The hip was stable at maximum flexion, at 90 degrees of flexion and 45 degrees of internal rotation and the position of sleep. Leg lengths were restored as shown using the computer navigation, and the trial LTC matched preoperative and intraoperative templating. The hip was then dislocated and trial components removed. We copiously irrigated the wound and impacted the final femoral stem into position. The femoral head was impacted onto a clean and dry trunion and confirmed to be seated. The hip was reduced ensuring to tissues in the acetabular cup. We again brought it through a full functional range of motion and there was no evidence for dislocation, instability, or impingement. The checkpoint was removed. A dilute betadine solution (17.5mL in 500mL saline) was used to wash the joint and left to sit for 3 minutes. This was then irrigated out with copious amounts of pulse lavage. We sprinkled 1g vancomycin powder below the fascia and 1g above the fascia. We copiously irrigated the wound and soft tissues. The short external rotators and capsule were repaired to the greater trochanter through drill holes, and the quadratus was repaired. We palpated the sciatic nerve in continuity without tension. The fascia was closed with vicryl and a barbed suture. We closed over the fascia with vicryl suture and re-approximated the skin with tia. A sterile dressing was placed. We returned the patient to the supine position. We verified all lower extremity compartments were soft and compressible and that we had intact distal pulses and checked our leg length pentecostal. We took an AP Pelvis in the operating room, which we reviewed prior to transfer. The patient was then transferred to the recovery room in stable condition. Condition Good Disposition Still a Patient ELMER SANDOVAL MD Oct 04, 2024 15:39
== END 2024-10-04 13:00 | disposition home health service (06) | DRG 470 ==
LOC: SUR 07:18 → OVERFLOW 10:33 → TELE-EAST 14:23
PROVIDERS: ADMIT Internal Medicine; ATTEND Internal Medicine
PROC: 8E0WXBZ Computer Assisted Procedure of Trunk Region (ICD-10-PCS; 2024-10-03)
PROC: 0SR90JZ Replacement of Right Hip Joint with Synthetic Substitute, Open Approach (ICD-10-PCS; principal; 2024-10-03 10:24)
DX: M16.11 Unilateral primary osteoarthritis, right hip (principal); N40.0 Benign prostatic hyperplasia without lower urinary tract symptoms; E66.9 Obesity, unspecified; E78.5 Hyperlipidemia, unspecified; I10 Essential (primary) hypertension; Z68.30 Body mass index [BMI] 30.0-30.9, adult; Z79.899 Other long term (current) drug therapy
CPT/HCPCS: 36415; 72170; 80053; 81001; 85025; 85610; 85730; 86850; 86900; 86901; 97163; G0378; J0131; J0171; J1885; J2250; J2405; J2704; J3490